=== PATIENT | female | born 1965 | race American Indian/Alaskan Native ===

== ENCOUNTER 2021-02-26 08:45 | Outpatient (CLI) | payer OTHER ==
--- NOTE | 2021-02-26 10:02 | Mammography Report ---
DIGITAL SCREENING MAMMOGRAM WITH CAD, 02/26/2021 CLINICAL INFORMATION / INDICATION: Routine screening TECHNIQUE: Digital bilateral 2D mammography was obtained in the craniocaudal and mediolateral obliqu e projections. This examination was interpreted with the benefit of Computer-Aided Detection analysis . COMPARISON: None available FINDINGS: Breast Density: There are scattered areas of fibroglandular density. No dominant mass, suspicious calcifications, or architectural distortion in the left breast. Minimal benign-appearing nodularity is seen on the left. In the anterior to mid depth of the right br east at 7:00, approximately 1.5 cm lateral to the nipple and 2.5 cm inferior to the nipple, a 7 mm ov oid nodular type density is seen. Borders may be mildly irregular. IMPRESSION: Focal asymmetric density on the right Follow up recommendation: Right breast ultrasound BI-RADS Category 0: Incomplete. Needs additional imaging evaluation and/or prior mammograms for markel art. A "normal" or negative report should not discourage follow up or biopsy of a clinically significant f inding. A written summary of these findings will be mailed to the patient. The patient will be entered into a mammography reporting system which will generate a reminder letter for the patient's next appointmen t at the appropriate interval. The [employer] recommends yearly mammograms starting at age 40 and continuing as l luis m as a woman is in good health. Breast MRI is recommended for women with an approximate 20-25% or greater lifetime risk of breast cancer, including women with a strong family history of breast or ova jamie cancer or who have been treated for Hodgkin's disease. Signer Name: Richard To MD Signed: 02/26/2021 9:58 AM Workstation Name: [id number]
== END 2021-02-26 08:46 | disposition home or self-care (01) ==
LOC: SPVWC 08:45
PROVIDERS: ATTEND Nurse Practitioner Family
DX: Z12.31 Encounter for screening mammogram for malignant neoplasm of breast (principal); N64.89 Other specified disorders of breast
CPT/HCPCS: 77067